=== PATIENT | male | born 1985 | race African-American/Black ===

== ENCOUNTER 2017-03-08 20:36 | Emergency (ER) | payer SELFPAY ==
[~2017-03-08] VITALS: Ht 177.8 cm; Wt 107.5 kg
[2017-03-08 21:12] VITALS: BP 138/56
== END 2017-03-08 23:20 | disposition left against medical advice (07) ==
LOC: ER 20:36
DX: Z53.21 Procedure and treatment not carried out due to patient leaving prior to being seen by health care provider (principal)

== ENCOUNTER 2018-06-28 08:48 | Emergency (ER) | payer OTHER ==
[~2018-06-28] VITALS: Ht 180.3 cm; Wt 47.0 kg
[2018-06-28] MEDS ORDERED: LIDOCAINE HCL/PF 1% 10 MG/ML 5ML VIAL IJ ONE (09:30)
[2018-06-28] MEDS ORDERED: ACETAMINOPHEN WITH CODEINE 300/30MG TABLET PO ONE (10:00)
[2018-06-28 12:15] VITALS: BP 124/74
== END 2018-06-28 12:20 | disposition home or self-care (01) ==
LOC: ER 08:48
DX: S01.01XA Laceration without foreign body of scalp, initial encounter (principal); S51.812A Laceration without foreign body of left forearm, initial encounter; S01.112A Laceration without foreign body of left eyelid and periocular area, initial encounter; S51.811A Laceration without foreign body of right forearm, initial encounter; S51.012A Laceration without foreign body of left elbow, initial encounter; F12.10 Cannabis abuse, uncomplicated; Y08.89XA Assault by other specified means, initial encounter; Y93.89 Activity, other specified; Y92.89 Other specified places as the place of occurrence of the external cause; Y99.8 Other external cause status
CPT/HCPCS: 12004; 12011; 99284; J3490